=== PATIENT | male | born 1995 | race African-American/Black ===

== ENCOUNTER 2023-02-01 12:43 | Emergency (ER) | payer MEDICAID ==
[~2023-02-01] VITALS: Ht 175.3 cm; Wt 77.0 kg
[2023-02-01 12:52] VITALS: BP 134/96; PULSE 90; RESP 20; TEMP 98.3; O2SAT 98
[2023-02-01] MEDS ORDERED: DOCU-150 MT (16:15)
[2023-02-01] MEDS ORDERED: LIDO28CR2 TP (16:23)
== END 2023-02-01 17:23 | disposition home or self-care (01) ==
LOC: ER 12:43
DX: K60.2 Anal fissure, unspecified (principal)
CPT/HCPCS: 99282